=== PATIENT | female | born 1925 ===

== ENCOUNTER 2017-02-12 20:52 | Emergency (ER) | payer MEDICARE ==
[~2017-02-12] VITALS: Ht 162.6 cm; Wt 72.6 kg
[2017-02-12] MEDS ORDERED: oxyCODONE/APAP 5/325 1 TAB TABLET PO ONE (21:30)
[2017-02-12 22:02] VITALS: BP 151/79
--- NOTE | 2017-02-12 22:22 | PHYS DOC ---
Past Medical History Past Medical History: Arthritis, Hypertension Past Surgical History: Appendectomy, Hysterectomy, Tonsillectomy Alcohol Use: Occasionally Drug Use: None Adult General Chief Complaint Chief Complaint: UPPER EXTREMITY PAIN HPI HPI Patient is a 89 year old female who presents with prior to arrival fell landing on her right arm complaining of proximal right upper extremity pain and injury did not hit her head or neck has no headache neck pain rib pain left arm or bilateral lower extremity pain. Pain is mild to moderate worse with movements does not radiate. Denies any other trauma. Review of Systems Review of Systems Constitutional: Denies fever or chills [] Eyes: Denies change in visual acuity, redness, or eye pain [] HENT: Denies nasal congestion or sore throat [] Respiratory: Denies cough or shortness of breath [] Cardiovascular: No additional information not addressed in HPI [] GI: Denies abdominal pain, nausea, vomiting, bloody stools or diarrhea [] : Denies dysuria or hematuria [] Musculoskeletal: Denies back pain or joint pain [] Integument: Denies rash or skin lesions [] Neurologic: Denies headache, focal weakness or sensory changes [] Endocrine: Denies polyuria or polydipsia [] Current Medications Current Medications Current Medications Medications (Trade) Dose Ordered Sig/Deann Start Time Stop Time Status Last Admin Dose Admin Oxycodone/ Acetaminophen (Percocet 5/325) 1 tab 1X ONCE 02/12/17 21:30 02/12/17 21:31 DC 02/12/17 21:52 1 TAB Allergies Allergies Allergies Coded Allergies Type Severity Reaction Last Updated Verified No Known Drug Allergies 02/12/17 No Physical Exam Physical Exam Constitutional: Well developed, well nourished, no acute distress, non-toxic appearance. [] HENT: Normocephalic, atraumatic, bilateral external ears normal, oropharynx moist, no oral exudates, nose normal. [] Eyes: PERRLA, EOMI, conjunctiva normal, no discharge. [] Neck: Normal range of motion, no tenderness, supple, no stridor. [] Cardiovascular:Heart rate regular rhythm, no murmur [] Lungs & Thorax: Bilateral breath sounds clear to auscultation nontender ribs [] Abdomen: Bowel sounds normal, soft, no tenderness, no masses, no pulsatile masses. [] Skin: Warm, dry, no erythema, no rash. [] Back: No tenderness, no CVA tenderness. [] Extremities: No tenderness except for the right upper extremity at the level of the proximal right humerus; no pain with range of motion or palpation of the right elbow right wrist or forearm; neurovascularly intact in the right distal extremity upper, no cyanosis, no clubbing, ROM intact, no edema. [] Neurologic: Alert and oriented X 3, normal motor function, normal sensory function, no focal deficits noted. [] Psychologic: Affect normal, judgement normal, mood normal. [] Current Patient Data Vital Signs Vital Signs Date Time Temp Pulse Resp B/P (MAP) Pulse Ox O2 Delivery O2 Flow Rate FiO2 02/12/17 22:02 78 24 151/79 (103) 97 Room Air 02/12/17 21:11 98.3 98.3 EKG EKG [] Radiology/Procedures Radiology/Procedures X-ray right humerus and shoulder shows no dislocation but a proximal nondisplaced transverse fracture of the right humerus my interpretation [] Course & Med Decision Making Course & Med Decision Making Pertinent Labs and Imaging studies reviewed. (See chart for details) [We will place an arm sling symptomatic treatment and follow up with Dr. Hou who is on-call for orthopedics.] Dragon Disclaimer Dragon Disclaimer This electronic medical record was generated, in whole or in part, using a voice recognition dictation system. Departure Departure Impression: Primary Impression: Closed fracture of right proximal humerus Disposition: 01 HOME, SELF-CARE Condition: IMPROVED Referrals: FAUSTO MELENDEZ MD (PCP) JÚNIOR HOU II, MD Patient Instructions: Humerus Fracture, Treated with Immobilization, Easy-to- Read Additional Instructions: .wear your arm sling and follow up with Dr Hou. Scripts Oxycodone/Apap 5-325 (PERCOCET 5-325 MG TABLET) 1 Each Tablet 1-2 TAB PO Q4-6HRS, #12 TAB Prov: PENNY SOTELO MD 02/12/17 PENNY SOTELO MD Feb 12, 2017 22:22
[2017-02-12] MEDS ORDERED: OXYC-323 PO (22:28)
--- NOTE | 2017-02-13 08:53 | RAD ---
Right shoulder, 3 views, 02/12/2017: History: Fall, pain The bony structures are demineralized. There is a fracture of the proximal humerus centered at the level of the humeral neck. A fracture line involves the greater tuberosity. There is slight impaction at the fracture site without significant displacement of the major fracture fragments. Degenerative change is present at the AC joint. Right humerus, 2 views, 02/12/2017: Views of the distal humerus reveal no additional fracture. There is only mild degenerative change at the elbow joint. IMPRESSION: 1. Demineralization. 2. Acute fracture of the right humeral neck
== END 2017-02-12 23:01 | disposition home or self-care (01) ==
LOC: ER 20:52
DX: S42.211A Unspecified displaced fracture of surgical neck of right humerus, initial encounter for closed fracture (principal); I10 Essential (primary) hypertension; M19.90 Unspecified osteoarthritis, unspecified site; Z90.49 Acquired absence of other specified parts of digestive tract; Z90.710 Acquired absence of both cervix and uterus; W19.XXXA Unspecified fall, initial encounter; Y93.89 Activity, other specified; Y92.89 Other specified places as the place of occurrence of the external cause; Y99.8 Other external cause status
CPT/HCPCS: 73030; 73060; 99284